=== PATIENT | female | born 1955 | race American Indian/Alaskan Native ===

== ENCOUNTER 2023-06-04 09:19 | Inpatient (IN) | payer MEDICARE, MEDICAID, SELFPAY ==
[2023-06-04 09:25] VITALS: BP 202/105; PULSE 74; RESP 16; TEMP 37.1; O2SAT 96; BMI 25.6
--- NOTE | 2023-06-04 09:34 | ECG_ITS ---
[facility] Test Date: 2023-06-04 Pat Name: Inna Taylor Department: Room: Gender: Female Core Inspector: : 1955 Requested By: Noemi Rodriguez Order Number: [id number] Jeremy MD: Akash Woo M.D. Measurements Intervals [place] Rate: 71 P: 34 CA: 132 QRS: 71 QRSD: 146 T: 40 QT: 439 QTc: 477 Interpretive Statements SINUS RHYTHM RIGHT BUNDLE BRANCH BLOCK [120+ ms QRS DURATION, UPRIGHT V1, 40+ ms S IN I/aVL/V4/V5/V6] Compared to ECG 10/03/2017 13:25:15 Right bundle-branch block now present Intraventricular conduction delay no longer present Electronically Signed On 06-04-2023 9:57:12 MATLAB DEVELOPER by Akash Woo M.D. [id number]
--- NOTE | 2023-06-04 09:35 | ED.C_ITS ---
HPI - Psych 2 General: Chief Complaint: Psychiatric Symptoms Stated Complaint: MHE Time Seen by Provider: 06/04/23 09:24 Source: patient Mode of arrival: ambulatory Limitations: no limitations History of Present Illness: 67-year-old female who states that over the last several weeks she has been having panic attacks along with severe depression. She states that she just feels anxious and has attacks at different times during the day she has had multiple episodes where she states she is just been crying she is also had thoughts of harming herself and has been scared she may harm herself she did bring her gun to her neighbor's house due to the concern. States she is seen her PCP has been on benzos and BuSpar states that nothing is helping and she wants to get inpatient help. Associated symptoms: Reports depression and suicidal ideation Review of Systems 2 Const: Denies: fever(s), chills, body aches or change in appetite Eyes: Denies: blurry vision or eye discomfort ENMT: Denies: throat pain or dental pain Card: Denies: chest pain Resp: Denies: dyspnea GI: Denies: abdominal pain, nausea, vomiting or diarrhea Musc: Denies: neck pain or back pain Skin/Breast: Denies: rash Neuro: Denies: headache(s) Psych: Reports: anxiety, depression and suicidal ideation Physical Exam 2 Const: COMMON NORMALS: patient oriented x3 and healthy appearing GENERAL APPEARANCE: anxious HENMT: COMMON NORMALS: normocephalic and atraumatic HEAD & SCALP: n ormocephalic and atraumatic Eye: COMMON NORMALS: Equal, round and reactive pupils present and EOMs intact bilaterally PUPIL: Yes Equal, round and reactive pupils present Neck/C-Spine: COMMON NORMALS: full ROM and supple Chest: COMMONS NORMALS: normal inspection of the chest and normal palpation of entire chest wall Resp: COMMON NORMALS: normal respiratory effort, No retractions, No use of accessory muscles and clear to auscultation bilaterally AUSCULTATION: clear to auscultation bilaterally Cardio: COMMON NORMALS: regular rate, regular rhythm and No murmurs present (Cardio) RATE: regular rate RHYTHM: regular rhythm Extremity: COMMON NORMALS: normal to inspection and full ROM Neuro: COMMON NORMALS: patient oriented x3, moves all extremities and no focal motor deficits Psych: COMMON NORMALS: Normal thought process present and cooperative MOOD & AFFECT: Yes anxious THOUGHT PROCESS: Normal thought process present T HOUGHT CONTENT: Yes Suicidality present Skin: COMMON NORMALS: no rashes or lesions noted and no wounds GENERAL SKIN EXAM: no rashes or lesions noted Course 2 Vital Signs: Vital signs: Vital Signs Temperature 98.8 F 06/04/23 09:25 Pulse Rate 74 06/04/23 09:25 Respiratory Rate 16 06/04/23 09:25 Blood Pressure 202/105 06/04/23 09:25 Pulse Oximetry 96 06/04/23 09:25 Oxygen Delivery Me thod Room Air 06/04/23 09:25 MDM - Psych Medical Decision Making Patient presents here with acute anxiety anxiety attacks and suicidal ideation she is voluntarily wanting admission patient is medically cleared she did have hypertension here she has not been taking her meds blood pressure here is improved after p.o. meds spoke to psychiatrist and will admit. Medical Records I reviewed the patient's medical records. Lab Data I reviewed the patient's lab results. 06/04/23 09:51 06/04/23 09:51 Laboratory Results WBC 5.40 10^3/uL (3.29-11.43) 06/04/23 09:51 RBC 4.78 10^6/uL (3.85-5.65) 06/04/23 09:51 Hgb 13.70 g/dL (11.27-16.99) 06/04/23 09:51 Hct 41.1 % (36-47) 06/04/23 09:51 MCV 86.0 fl (85-98) 06/04/23 09:51 MCH 28.7 pg (27-33) 06/04/23 09:51 MCHC 33.3 g/dL (30-55) 06/04/23 09:51 RDW 12.3 % (12.1-15.1) 06/04/23 09:51 Plt Count 239 10^3/cmm (157-399) 06/04/23 09:51 MPV 8.9 fL (7.4-10.4) 06/04/23 09:51 Neut % (Auto) 55.3 % 06/04/23 09:51 Lymph % (Auto) 35.6 % 06/04/23 09:51 Cook % (Auto) 7.8 % 06/04/23 09:51 Eos % (Auto) 0.0 % 06/04/23 09:51 Baso % (Auto) 0.7 % 06/04/23 09:51 Neut # (Auto) 2.99 10^3/uL (1.8-7.7) 06/04/23 09:51 Lymph # (Auto) 1.9 10^3/uL (0.8-4.8) 06/04/23 09:51 Cook # (Auto) 0.4 10^3/uL (0.2-0.9) 06/04/23 09:51 Eos # (Auto) 0.0 10^3/uL (0.0-0.8) 06/04/23 09:51 Baso # (Auto) 0.0 10^3/uL (0.0-0.1) 06/04/23 09:51 Nucleated RBC % (auto) 0 % 06/04/23 09:51 Nucleated RBCs # 0.0 /100WBC 06/04/23 09:51 Sodium 141 mmol/L (136-145) 06/04/23 09:51 Potassium 3.7 mmol/L (3.5-5.1) 06/04/23 09:51 Chloride 104 mmol/L (98-107) 06/04/23 09:51 Carbon Dioxide 24 mmol/L (22-29) 06/04/23 09:51 Anion Gap 16.7 (5-19) 06/04/23 09:51 BUN 12 mg/dL (8-23) 06/04/23 09:51 Creatinine 0.9 mg/dL (0.5-0.9) 06/04/23 09:51 GFR Calculation 62.8 mL/min (90-130) L 06/04/23 09:51 Glucose 123 mg/dL (65-115) H 06/04/23 09:51 POC Glucose 140 mg/dL (70-110) H 06/04/23 10:18 Calculated Osmolality 293 mOsm/kg (285-295) 06/04/23 09:51 Calcium 9.2 mg/dL (8.5-10.5) 06/04/23 09:51 Total Bilirubin 0.2 mg/dL (0.15-1.2) 06/04/23 09:51 AST 18 U/L (0-32) 06/04/23 09:51 ALT 18 U/L (0-33) 06/04/23 09:51 Alkaline Phosphatase 88 U/L (35-105) 06/04/23 09:51 Total Protein 7.5 g/dL (6.6-8.7) 06/04/23 09:51 Albumin 4.6 g/dL (3.5-5.2) 06/04/23 09:51 Globulin 2.9 g/dL (1.3-4.6) 12 09:51 TSH 3.50 uIU/mL (0.27-4.20) 06/04/23 09:51 Salicylates < 0.3 mg/dL (3-10) L 06/04/23 09:51 Urine Opiates Screen Negative ng/mL (Negative) 06/04/23 09:34 Acetaminophen < 5.0 ug/mL (10-30) L 06/04/23 09:51 Ur Barbiturates Screen Negative ng/mL (Negative) 06/04/23 09:34 Ur Phencyclidine Scrn Negative ng/mL (Negative) 06/04/23 09:34 Ur Amphetamines Screen Negative ng/mL (Negative) 06/04/23 09:34 U Benzodiazepines Scrn Negative ng/mL (Negative) 06/04/23 09:34 Urine Cocaine Screen Negative ng/mL (Negative) 06/04/23 09:34 U Marijuana (THC) Screen Negative ng/mL (Negative) 06/04/23 09:34 Ethyl Alcohol < 10 mg/dL (0-10) 06/04/23 09:51 No radiology studies performed this visit Discharge Plan Discharge Patient Disposition: Admitted As Inpatient Admit Provider: Cheikh Roberts Clinical Impression: Acute anxiety, Suicidal ideation Condition: Stable Coding Level of Care Code ED Pediatric Anesthesiologist for Jess Marie
[2023-06-04 10:00] LABS: Basophils % 0.7 %; Hematocrit 41.1 % (36-47); Lymphocytes # 1.9 10^3/uL (0.8-4.8); Lymphocytes % 35.6 %; Mean Corpuscular HGB Conc 33.3 g/dL (30-55); Mean Corpuscular Hemoglobin 28.7 pg (27-33); Mean Platelet Volume 8.9 fL (7.4-10.4); Monocytes # 0.4 10^3/uL (0.2-0.9); Monocytes % 7.8 %; Neutrophils # 2.99 10^3/uL (1.8-7.7); Neutrophils % 55.3 %; Nucleated Red Blood Cells % 0 %; Platelet Count 239 10^3/cmm (157-399); Red Blood Count 4.78 10^6/uL (3.85-5.65); Red Cell Distribution Width 12.3 % (12.1-15.1)
[2023-06-04] MEDS: metoprolol succinate ER (24 HR) 25 mg Tablet PO (10:01)
[2023-06-04] MEDS: LORazepam 1 mg Tablet PO (10:01)
[2023-06-04 10:23] LABS: Glucose Point of Care 140 mg/dL (70-110)
[2023-06-04 10:26] LABS: Amphetamines Screen Urine Negative (Negative); Barbiturates Screen Urine Negative (Negative); Benzodiazepines Screen Urine Negative (Negative); Cocaine Screen Urine Negative (Negative); Opiate Screen Urine Negative (Negative); PCP Screen Urine Negative (Negative); THC Screen Urine Negative (Negative)
[2023-06-04] MEDS: hyDRALAzine 25 mg Tablet PO (10:34)
[2023-06-04 10:35] LABS: Alanine Aminotransferase 18 U/L (0-33); Albumin Level 4.6 g/dL (3.5-5.2); Alkaline Phosphatase 88 U/L (35-105); Anion Gap 16.7 (5-19); Aspartate Amino Transferase 18 U/L (0-32); Blood Urea Nitrogen 12 mg/dL (8-23); Calcium 9.2 mg/dL (8.5-10.5); Carbon Dioxide 24 mmol/L (22-29); Chloride 104 mmol/L (98-107); Globulin 2.9 g/dL (1.3-4.6); Glomerular Filtration Rate 62.8 mL/min (90-130); Glucose 123 mg/dL (65-115); Osmolality Calculated 293 mOsm/kg (285-295); Potassium 3.7 mmol/L (3.5-5.1); Sodium 141 mmol/L (136-145); Total Bilirubin 0.2 mg/dL (0.15-1.2); Total Protein 7.5 g/dL (6.6-8.7)
[2023-06-04 10:36] LABS: Acetaminophen < 5.0 ug/mL (10-30); Alcohol Level < 10 mg/dL (0-10); Salicylate < 0.3 mg/dL (3-10)
[2023-06-04 11:09] VITALS: BP 171/83; PULSE 62; O2SAT 96
--- NOTE | 2023-06-04 11:21 | PC.PHAR ---
pt states she takes care of her own medications-pt states she is taking all the medications entered-pt states she has been out of her amlodipine 5mg daily for 2 weeks [facility] last filled 03/18/23 and states it has refills-[facility] states they have rxs on hold for losartan 50mg daily and crestor 20mg daily written on 03/25/23 never filled-pt states she has lantus solostar 5 units daily prn ext doesnt show when last filled pt states she doesnt remember where she filled the lantus at-pt brought in metformin 500mg 2 tabs bid dated 05/26/23 30d/s another bottle for 500mg daily dated 05/08/23 and metformin 1000mg bid dated 01/28/23-pt brought in a bottle of levothyroxine 150mcg daily dated 05/20/23 90d/s and another bottle dated 10/25/22 75mcg daily pt states she is taking the 150mcg-pt states she has 4 tabs left of her ambien 10mg rx bottle dated 03/05/23 30d/s [facility] states last filled 04/04/23 30d/s-pt states she is still taking prozac 20mg 20-40mg daily no label was on bottle but bottle has in 01/2023-pt states she takes protonix 40mg bid rx bottle dated 04-07-23 40mg daily-pt had brought in farmapram 1.0mg pt states takes prn-pt states she is taking lipitor 10mg qam rx bottle was dated 06/18/22-called npu and talked to teresa yeh to make her aware of the duplicate medications that the pt brought in and states she is taking-pt was seen 06/03/23 at [facility] by a sharepoint admin named adeline -notes are made in the pharmacy comments
[2023-06-04 11:41] VITALS: BP 161/83; PULSE 64; O2SAT 93
[2023-06-04 12:21] VITALS: BP 191/96; PULSE 59; RESP 14; TEMP 36.4; O2SAT 100
--- NOTE | 2023-06-04 13:02 | PC.NURSE ---
ADMISSION PT ARRIVES TO NPU FROM [facility] ED. PT STATES IT ALL STARTED 7 WEEKS AGO. PT HAS PANIC ATTACKS AND CRIES UNCONTROLLABLY. STATES SHE WILL CRY LIKE SHE HAS LOST A CHILD. PT WENT WAS RUNNING AWAY FROM HERSELF SHE DROVE OVER 1500 MILES AND BOUGHT ALL NEW CLOTHES FOR HERSELF. PT HAD A PLAN TO SHOOT HERSELF WITH A 9MM BUT REALIZED WHAT SHE WAS DOING AND TOOK THE GUN TO HER NEIGHBOR. PT ADDS THAT SHE ALSO SEES CHILDREN ON HER LAP AFTER THEY HAVE HAD THEIR HEADS CUT OFF AND CAN FEEL THE WEIGHT OF THEIR BODIES.
[2023-06-04] MEDS: pneumococcal (23 valent) SDV 0.5 mL IM (13:52)
[2023-06-04] MEDS: flu vacc pf 2023-24 (6 mos+) 60 MCG IM (13:54)
[2023-06-04 14:00] VITALS: BP 185/83; PULSE 53; RESP 15; TEMP 36.6; O2SAT 98
[2023-06-04] MEDS: OLANZapine 5 mg ODT PO (16:17)
[2023-06-04 20:33] LABS: Glucose Point of Care 111 mg/dL (70-110)
[2023-06-04 20:36] VITALS: BP 133/73; PULSE 53; RESP 15; TEMP 36.9; O2SAT 95
--- NOTE | 2023-06-04 21:06 | PC.NURSE ---
ANXIETY NOTED. PT DENIES SI/HI AND AVH AT THIS TIME. PT DOES MAKE ODD STATEMENTS SAYING, I CAN FEEL BABIES IN MY LEGS AND HEAR THEIR MOTHERS WAILING BEHIND ME, BUT 3 MONTHS AGO I DIDN'T CARE IF YOU WERE I WOULD WALK RIGHT OVER YOU. REPORTS 01/06 ANXIETY AND DEPRESSION 01/06. PT IS REQUESTING ANXIETY MEDICATIONS AND TYLENOL PM. PT WAS EDUCATED THAT THE HOSPITAL DOES NOT CARRY TYLENOL PM AND THEREFORE SHE COULD HAVE SOMETHING ELSE. RN REPORTED TO PT SHE ALREADY GETS AMBIEN 10 MG. PT STATED IT TAKES ALOT TO GET ME KNOCKED OUT AND I WANT EVERY THING I CAN GET. PT WAS INFORMED SHE COULD HAVE SOMETHING FOR ANXIETY BUT STILL HAS NOT COME TO THE NURSES STATION TO GET IT. PT IN ROOM READING WITH ANXIETY NOTED AT TIMES WHEN SPEAKING TO STAFF. ALL QUESTIONS ANSWERED AND SUPPORT VOICED. DENIES PAIN.
[2023-06-04] MEDS: BuSPIRONE 10 mg Tablet 5 MG PO (21:40)
[2023-06-04] MEDS: zolpidem 5 mg Tablet 10 MG PO (21:40)
[2023-06-04] MEDS: metformin 500 mg Tablet PO (21:40)
[2023-06-04] MEDS: hyDROXYzine 25 mg Capsule 50 MG PO (21:40)
--- NOTE | 2023-06-04 22:17 | PC.NURSE ---
PT UP TO NURSES STATION TO TAKE PM MEDS AT APPROXIMATELY 2149, REQUEST ANXIETY MEDS. VISTARIL 50 MG WAS GIVEN ORDERED FOR ANXIETY.
--- NOTE | 2023-06-05 04:00 | PC.NURSE ---
PT WAS GIVEN PRN ANXIETY LAST NIGHT AT APPROXIMATELY 2148. PT HAS RESTED WITH EYES CLOSED WITH NO DISTRESS NOTED FOR APPROXIMATELY 8 HOURS. PRN MEDICATION DEEMED EFFECTIVE.
[2023-06-05] MEDS: levothyroxine 150 mcg Tablet PO (05:46)
[2023-06-05 06:00] VITALS: BP 133/60; PULSE 44; RESP 15; O2SAT 95
--- NOTE | 2023-06-05 06:18 | P.NPUHP_ITS ---
Providers/Chief Complaint 2 Admitting Physician: Cheikh Roberts MD Primary Care Provider: RIANNA Mcwilliams Chief Complaint: MHE HPI NPU History of Present Illness Inna Taylor is a 67 year old female who presented to the emergency department with the following report: Chief Complaint: Psychiatric Symptoms Stated Complaint: MHE Time Seen by Provider: 06/04/23 09:24 Source: patient Mode of arrival: ambulatory Limitations: no limitations History of Present Illness: 67-year-old female who states that over the last several weeks she has been having panic attacks along with severe depression. She states that she just feels anxious and has attacks at different times during the day she has had multiple episodes where she states she is just been crying she is also had thoughts of harming herself and has been scared she may harm herself she did bring her gun to her neighbor's house due to the concern. States she is seen her PCP has been on benzos and BuSpar states that nothing is helping and she wants to get inpatient help. Associated symptoms: Reports depression and suicidal ideation The patient was admitted to the neuropsychiatric unit for definitive treatment of those issues. The patient presents today reporting that she is currently taking Sertraline, Buspar and Xanax and another medication, which were all started recently. She reports that she has been having ?meltdowns? and the medication has helped her stop crying, which she had been doing all the time. She reports that she has major panic attacks and feels like the whole world is caving in on her, stating it took 65 years for her to get this way, and she has never had this problem before. She reports that this is her first psychiatric hospitalization. She does report that she has been on Paxil, in the past, about five years ago, for ?women?s moods.? She denies outpatient services or other psychiatric medications previously. She denies cigarette, tobacco, alcohol, marijuana, cocaine, methamphetamine, or any other illicit drug use. She denies drug rehabilitation, DUI, or any other drug related charges. She reports that five years ago she was having irritability which is when she started the Paxil, which she took for a while but did not go back to the doctor after it ran out, at some point, and she quit taking it. The patient endorses low mood, tearfulness, feelings of hopelessness, helplessness, worthlessness, sleep difficulties, lack of enjoyment, overeating. She endorses passive wish and a few days of suicidal thoughts. She denies self-injurious behavior. She reports that she had a gun and took it to someone else?s house for safety. She endorses anxiety with worrying and physical symptoms, like shaking and shortness of breath. She endorses panic attacks, describing that feels like a tornado outside sucking everything out of her. She reports that she has times where she cries for no reason. She denies flashbacks or nightmares. She denies paranoia. She endorses visual hallucinations that she describes as very vivid. She denies obsessive compulsive symptoms. She endorses that she has been through menopause. We discussed the risks, benefits, and alternatives of increasing the Zoloft and possibly starting a mood stabilizer, and she understood and agreed to proceed as is documented in this note. PSYCHIATRIC HISTORY: As above. SUBSTANCE ABUSE HISTORY: As above.? FAMILY HISTORY: The patient endorses mental health issues on her mother?s side of the family. She denies addiction issues or suicide attempts or completions on either side of the family. DEVELOPMENTAL HISTORY: The patient denies any issues with her mother?s or delivery of her, but she was a twin. The patient reports learning to walk and talk and meeting developmental milestones on time. The patient denies speech therapy, learning support, emotional support, or special education classes. PSYCHOSOCIAL HISTORY: The patient reports that her mother and father were together at her and remain together. The patient reports that there are four girls from that union. Her and her twin are the oldest. She describes her childhood as good. She denies emotional, physical, or sexual abuse. She reports trauma from her twin sister running off with her . They were together for five months and he left her as well. She denies nightmares related to this but is is very upsetting. The patient reports that she graduated from high school and went to college and got a degree in business law and business. She endorses being heterosexual, with the longest relationship being twenty years. She has been twice and twice. She reports that she has three daughters. She denies service. She denies a hinduism belief system. 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 She reports that she currently lives in a house with her 18-year-old granddaughter. ? LEGAL HISTORY: Denied. MEDICAL HISTORY: The patient endorses allergy to Penicillin and something else she could not remember the name of. The patient endorses that she had lung cancer and breast cancer. She endorses thyroid, colon, gall bladder, right rotator cuff surgery. She reports that she started her menses at 13 years old. She has been out of menopause for five years. She reports that she had vaginal deliveries. Meds NPU Home Medications Medication Instructions Recorded Confirmed Last Taken Type Farmapram (1.0mg) 1 mg PO DAILY PRN Anxiety 06/04/23 06/04/23 Unknown History amlodipine 5 mg tablet 5 mg PO DAILY 06/04/23 06/04/23 2 Weeks Ago History ~05/21/23 see all pharmacy com atorvastatin 10 mg tablet (Lipitor) 10 mg PO QAM 06/04/23 06/04/23 Unknown History buspirone 5 mg tablet 5 mg PO TID 06/04/23 06/04/23 Unknown History diphenhydramine 25 2 - 3 tab PO BEDTIME 06/04/23 06/04/23 Unknown History mg-acetaminophen 500 mg tablet (Pain Relief PM) diphenhydramine HCl 50 mg capsule 50 - 100 mg PO BEDTIME 06/04/23 06/04/23 Unknown History (Sleep Aid (diphenhydramine)) fluoxetine 20 mg capsule (Prozac) 20 - 40 mg PO DAILY 06/04/23 06/04/23 Unknown History hydroxyzine pamoate 50 mg capsule 50 mg PO Q6H PRN Anxiety 06/04/23 06/04/23 Unknown History ibuprofen 600 mg tablet 600 mg PO Q6H PRN Pain 06/04/23 06/04/23 Unknown History insulin glargine 100 unit/mL (3 5 unit SUBCUT DAILY PRN blood sugar 06/04/23 06/04/23 Unknown History mL) subcutaneous pen (Lantus Solostar U-100 Insulin) levothyroxine 150 mcg tablet 150 mcg PO QAM 06/04/23 06/04/23 Unknown History melatonin 12 mg tablet 48 - 60 mg PO BEDTIME 06/04/23 06/04/23 Unknown History metformin 500 mg tablet 1,000 mg PO BID 06/04/23 06/04/23 Unknown History omeprazole magnesium 20 mg 20 mg PO DAILY PRN Heartburn 06/04/23 06/04/23 Unknown History tablet,delayed release (Prilosec OTC) pantoprazole 40 mg tablet,delayed 40 mg PO BID 06/04/23 06/04/23 Unknown History release (Protonix) sertraline 50 mg tablet (Zoloft) 50 mg PO DAILY 06/04/23 06/04/23 Unknown History zolpidem 10 mg tablet (Ambien) 10 mg PO BEDTIME 06/04/23 06/04/23 Unknown History Allergies Allergy/AdvReac Type Severity Reaction Status Date / Time Penicillins Allergy Mild ALGY-Hives Verified 06/04/23 09:56 lisinopril Allergy Unknown Verified 06/04/23 11:17 Mental Status Exam 2 MSE Comments: This is a well-nourished, well-developed, white female, in hospital scrubs, with limited grooming and eye contact. No abnormal movements, except for mild psychomotor retardation. Cooperative with exam in mild distress. Speech was normal rate and volume. Mood described as better, but all I do is sleep; affect congruent. Thought process, organized. Thought content: patient denied any suicidal or homicidal ideation, there were no delusions reported or noted, patient denied any auditory or visual hallucinations. Attention, concentration, and memory appeared intact, but none were formally tested. Alert and oriented times three. Insight and judgment appear limited. Impulse control is limited. Vitals/I&O/Wt Last Vital Signs Temp 98.4 F 06/04/23 20:36 Pulse 53 L 06/04/23 20:36 Resp 15 06/04/23 20:36 BP 133/73 06/04/23 20:36 Pulse Ox 95 06/04/23 20:36 O2 Del Method Room Air 06/04/23 20:36 Weight last 48 hrs Weight 69.853 kg Data NPU 06/04/23 09:51 06/04/23 09:51 A&P Assessment and plan (1) Suicidal ideation: (2) Acute anxiety: (3) Major depressive disorder: Plan This is a 67-year-old white female with no reported history of significant mental health issues or treatment who presents reporting significant depression and anxiety with recent medication trials open to medication changes. 1.? Continue current medication: 2.? Increase Zoloft. 3.? Consider starting mood stabilizer. ? 4.? Encourage individual, group, and milieu therapy. 5.? Continue q-15-minute checks for safety. Involuntary Hold Information 2 96 Hour Hold: 96 Hour Involuntary Admission: No Attestations NPU 2 Medical Necessity Statement*: Inpatient hospitalization is medically necessary and the clinically appropriate intervention, at this time. We will monitor medications and make changes as indicated. Patient will be in the hospital for over two midnights. Likely length of stay is three to five days. Coding Level of Care Code Acute Code for Chg Fwd Diagnoses Suicidal ideation R45.851 Acute anxiety F41.9 Major depressive disorder F32.9
[2023-06-05 07:40] VITALS: BP 176/79
[2023-06-05] MEDS: losartan 50 mg Tablet 100 MG PO (07:40)
[2023-06-05] MEDS: BuSPIRONE 10 mg Tablet 5 MG PO ×3 (07:43→21:03)
[2023-06-05] MEDS: pantoprazole DR 40 mg Tablet PO ×2 (07:44→17:11)
[2023-06-05] MEDS: amlodipine 5 mg Tablet PO (07:45)
[2023-06-05] MEDS: fluoxetine 20 mg Capsule PO (07:45)
[2023-06-05] MEDS: metformin 500 mg Tablet PO ×4 (07:45→21:03)
[2023-06-05] MEDS: sertraline 50 mg Tablet PO (07:45)
[2023-06-05] MEDS: atorvastatin 40 mg Tablet 20 MG PO (07:45)
[2023-06-05] MEDS: OLANZapine 5 mg ODT PO (07:45)
[2023-06-05 08:19] LABS: Glucose Point of Care 142 mg/dL (70-110)
[2023-06-05 12:05] LABS: Glucose Point of Care 142 mg/dL (70-110)
[2023-06-05 14:00] VITALS: BP 171/79; PULSE 46; RESP 18; TEMP 36.5; O2SAT 98
[2023-06-05 17:04] LABS: Glucose Point of Care 89 mg/dL (70-110)
[2023-06-05 19:55] LABS: Glucose Point of Care 127 mg/dL (70-110)
[2023-06-05 20:23] VITALS: BP 178/73; PULSE 51; RESP 16; TEMP 36.8; O2SAT 98
--- NOTE | 2023-06-05 20:50 | PC.NURSE ---
IN BED READING BOOK. PT REPORTS SHE HAD A GOOD DAY STATING I'VE ONLY HAD 4 PANIC ATTACKS TODAY AND I USUALLY HAVE TEN, SO WHATEVER YOU ALL ARE DOING, KEEP IT UP. PT DENIES PAIN. DENIES SI/HI AND AVH AT THIS TIME. REPORTS ANXIETY 10 AND DEPRESSION 4/. PT REQUESTS PRN ANXIETY MEDICATIONS. PT ASSURED THIS RN WOULD GIVE HER VISTARIL 50 MG PT AGREED. ALL QUESTIONS ANSWERED AND SUPPORT VOICED.
[2023-06-05] MEDS: zolpidem 5 mg Tablet 10 MG PO (21:03)
[2023-06-05] MEDS: hyDROXYzine 25 mg Capsule 50 MG PO (21:03)
[2023-06-06] MEDS: levothyroxine 150 mcg Tablet PO (05:56)
[2023-06-06] MEDS: atorvastatin 40 mg Tablet 20 MG PO (05:56)
[2023-06-06 06:00] VITALS: BP 135/74; PULSE 55; RESP 17; O2SAT 96
--- NOTE | 2023-06-06 06:27 | PC.NURSE ---
PT HAS RESTED WELL THROUGH OUT THE NIGHT SLEEPING APPROXIMATELY 8 HOURS TOTAL. PT WAS GIVEN VISTARIL 50 MG PRN AND IT IS DEEMED EFFECTIVE.
[2023-06-06 07:45] VITALS: BP 146/81
[2023-06-06] MEDS: losartan 50 mg Tablet 100 MG PO (07:45)
[2023-06-06] MEDS: pantoprazole DR 40 mg Tablet PO ×2 (07:47→17:04)
[2023-06-06] MEDS: fluoxetine 20 mg Capsule PO (07:47)
[2023-06-06] MEDS: BuSPIRONE 10 mg Tablet 5 MG PO ×3 (07:47→20:52)
[2023-06-06 07:48] LABS: Glucose Point of Care 114 mg/dL (70-110)
[2023-06-06] MEDS: metformin 500 mg Tablet PO ×4 (07:48→20:52)
[2023-06-06] MEDS: amlodipine 5 mg Tablet PO (07:48)
[2023-06-06] MEDS: sertraline 50 mg Tablet PO ×2 (07:48→11:08)
--- NOTE | 2023-06-06 10:11 | P.NPUPN_ITS ---
Subjective NPU 2 Subjective: Patient presented today reporting that she is doing a little better with the increase in the Zoloft. She reports that she is feeling a little bit more positive. We discussed her working with the social work team on making sure she has appropriate follow-up and aftercare. She denies any side effects of the medication and we discussed continuing to move towards the Zoloft unlikely away from the Prozac. Mental Status Exam 2 MSE Comments: This is a well-nourished, well-developed, white female, in hospital scrubs, with limited grooming and eye contact. No abnormal movements, except for mild psychomotor retardation. Cooperative with exam in mild distress. Speech was normal rate and volume. Mood described as better; affect congruent. Thought process, organized. Thought content: patient denied any suicidal or homicidal ideation, there were no delusions reported or noted, patient denied any auditory or visual hallucinations. Attention, concentration, and memory appeared intact, but none were formally tested. Alert and oriented times three. Insight and judgment appear limited. Impulse control is limited. Vitals/I&O/Wt Last Vital Signs Temp 98.3 F 06/05/23 20:23 Pulse 55 L 06/06/23 06:00 Resp 17 06/06/23 06:00 BP 146/81 06/06/23 07:45 Pulse Ox 96 06/06/23 06:00 O2 Del Method Room Air 06/06/23 06:00 Data NPU 06/04/23 09:51 06/04/23 09:51 A&P Assessment and plan (1) Suicidal ideation: (2) Acute anxiety: (3) Major depressive disorder: Plan This is a 67-year-old white female with no reported history of significant mental health issues or treatment who presents reporting significant depression and anxiety with recent medication trials open to medication changes. 1.? Continue current medication: 2.? Increased Zoloft to 100mg. 3.? Consider starting mood stabilizer. ? 4.? Encourage individual, group, and milieu therapy. 5.? Continue q-15-minute checks for safety. Involuntary Hold Information 2 96 Hour Hold: 96 Hour Involuntary Admission: No Attestations NPU 2 Medical Necessity Statement*: Inpatient hospitalization is medically necessary and the clinically appropriate intervention, at this time. We will monitor medications and make changes as indicated. Likely length of stay is three to five days. Coding Level of Care Code Acute Code for Chg Fwd Diagnoses Suicidal ideation R45.851 Acute anxiety F41.9 Major depressive disorder F32.9
[2023-06-06 11:53] LABS: Glucose Point of Care 115 mg/dL (70-110)
[2023-06-06 14:00] VITALS: BP 164/65; PULSE 66; RESP 16; TEMP 36.9; O2SAT 97
[2023-06-06 20:40] LABS: Glucose Point of Care 123 mg/dL (70-110)
[2023-06-06] MEDS: zolpidem 5 mg Tablet 10 MG PO (20:52)
[2023-06-06 21:03] VITALS: BP 137/79; PULSE 62; RESP 18; TEMP 36.7; O2SAT 96
[2023-06-07 06:00] VITALS: BP 141/59; PULSE 58; RESP 16; O2SAT 94
[2023-06-07] MEDS: levothyroxine 150 mcg Tablet PO (06:25)
[2023-06-07] MEDS: atorvastatin 40 mg Tablet 20 MG PO (06:25)
[2023-06-07 07:48] LABS: Glucose Point of Care 154 mg/dL (70-110)
--- NOTE | 2023-06-07 08:12 | P.NPUPN_ITS ---
Subjective NPU 2 Subjective: Patient presented today reporting that she is feeling better and more optimistic about discharge. We discussed going to make sure she had appropriate follow-up given she has not had mental health involved. She reports that she has no side effects and is tolerating the medication quite well. We discussed the likelihood of discharge in the next 48 hours. Mental Status Exam 2 MSE Comments: This is a well-nourished, well-developed, white female, in hospital scrubs, with appropriate grooming and eye contact. No abnormal movements. Cooperative with exam in no acute distress. Speech was normal rate and volume. Mood described as much better; affect congruent. Thought process, organized. Thought content: patient denied any suicidal or homicidal ideation, there were no delusions reported or noted, patient denied any auditory or visual hallucinations. Attention, concentration, and memory appeared intact, but none were formally tested. Alert and oriented times three. Insight and judgment appear limited, but improving. Impulse control is limited. Vitals/I&O/Wt Last Vital Signs Temp 98.1 F 06/06/23 21:03 Pulse 58 L 06/07/23 06:00 Resp 16 06/07/23 06:00 BP 141/59 06/07/23 06:00 Pulse Ox 94 06/07/23 06:00 O2 Del Method Room Air 06/07/23 06:00 Data NPU 06/04/23 09:51 06/04/23 09:51 A&P Assessment and plan (1) Suicidal ideation: (2) Acute anxiety: (3) Major depressive disorder: Plan This is a 67-year-old white female with no reported history of significant mental health issues or treatment who presents reporting significant depression and anxiety with recent medication trials open to medication changes. 1.? Continue current medication: 2.? Increased Zoloft to 100mg. 3.? Consider starting mood stabilizer. ? 4.? Encourage individual, group, and milieu therapy. 5.? Continue q-15-minute checks for safety. Involuntary Hold Information 2 96 Hour Hold: 96 Hour Involuntary Admission: No Attestations NPU 2 Medical Necessity Statement*: Inpatient hospitalization is medically necessary and the clinically appropriate intervention, at this time. We will monitor medications and make changes as indicated. Likely length of stay is 1-3 days. Coding Level of Care Code Acute Code for Chg Fwd Diagnoses Suicidal ideation R45.851 Acute anxiety F41.9 Major depressive disorder F32.9
[2023-06-07 09:39] VITALS: BP 141/59
[2023-06-07] MEDS: losartan 50 mg Tablet 100 MG PO (09:39)
[2023-06-07] MEDS: sertraline 50 mg Tablet 100 MG PO (09:39)
[2023-06-07] MEDS: metformin 500 mg Tablet PO ×4 (09:39→21:00)
[2023-06-07] MEDS: pantoprazole DR 40 mg Tablet PO ×2 (09:39→17:49)
[2023-06-07] MEDS: fluoxetine 20 mg Capsule PO (09:40)
[2023-06-07] MEDS: BuSPIRONE 10 mg Tablet 5 MG PO ×3 (09:40→21:00)
[2023-06-07] MEDS: amlodipine 5 mg Tablet PO (09:40)
[2023-06-07 11:50] LABS: Glucose Point of Care 113 mg/dL (70-110)
[2023-06-07 14:00] VITALS: BP 153/74; PULSE 73; RESP 20; TEMP 36.4; O2SAT 97
[2023-06-07 17:57] LABS: Glucose Point of Care 109 mg/dL (70-110)
[2023-06-07 20:31] LABS: Glucose Point of Care 123 mg/dL (70-110)
[2023-06-07] MEDS: zolpidem 5 mg Tablet 10 MG PO (21:00)
[2023-06-07 22:00] VITALS: BP 111/70; PULSE 73; RESP 18; TEMP 36.6; O2SAT 97
[2023-06-08 06:00] VITALS: BP 157/89; PULSE 76; RESP 17; O2SAT 98
[2023-06-08] MEDS: levothyroxine 150 mcg Tablet PO (06:11)
[2023-06-08] MEDS: atorvastatin 40 mg Tablet 20 MG PO (06:11)
[2023-06-08 08:14] LABS: Glucose Point of Care 111 mg/dL (70-110)
[2023-06-08] MEDS: pantoprazole DR 40 mg Tablet PO (08:44)
[2023-06-08] MEDS: losartan 50 mg Tablet 100 MG PO (08:44)
[2023-06-08] MEDS: fluoxetine 20 mg Capsule PO (08:44)
[2023-06-08] MEDS: metformin 500 mg Tablet PO ×2 (08:44→12:13)
[2023-06-08] MEDS: amlodipine 5 mg Tablet PO (08:44)
[2023-06-08] MEDS: sertraline 50 mg Tablet 100 MG PO (08:44)
[2023-06-08] MEDS: BuSPIRONE 10 mg Tablet 5 MG PO (08:44)
--- NOTE | 2023-06-08 12:36 | P.NPUDS_ITS ---
Diagnoses at Discharge Discharge Diagnosis (1) Suicidal ideation: Status: Resolved (2) Acute anxiety: Status: Acute (3) Major depressive disorder: Status: Acute Reason for Visit Reason for Visit: MHE Brief History: History of Present Illness Inna Taylor is a 67 year old female who presented to the emergency department with the following report: Chief Complaint: Psychiatric Symptoms Stated Complaint: MHE Time Seen by Provider: 06/04/23 09:24 Source: patient Mode of arrival: ambulatory Limitations: no limitations History of Present Illness: 67-year-old female who states that over the last several weeks she has been having panic attacks along with severe depression. She states that she just feels anxious and has attacks at different times during the day she has had multiple episodes where she states she is just been crying she is also had thoughts of harming herself and has been scared she may harm herself she did bring her gun to her neighbor's house due to the concern. States she is seen her PCP has been on benzos and BuSpar states that nothing is helping and she wan ts to get inpatient help. Associated symptoms: Reports depression and suicidal ideation The patient was admitted to the neuropsychiatric unit for definitive treatment of those issues. The patient presents today reporting that she is currently taking Sertraline, Buspar and Xanax and another medication, which were all started recently. She reports that she has been having ?meltdowns? and the medication has helped her stop crying, which she had been doing all the time. She reports that she has major panic attacks and feels like the whole world is caving in on her, stating it took 65 years for her to get this way, and she has never had this problem before. She reports that this is her first psychiatric hospitalization. She does report that she has been on Paxil, in the past, about five years ago, for ?women?s moods.? She denies outpatient services or other psychiatric medications previously. She denies cigarette, tobacco, alcohol, marijuana, cocaine, methamphetamine, or any other illicit drug use. She denies drug rehabilitation, DUI, or any other drug related charges. She reports that five years ago she was having irritability which is when she started the Paxil, which she took for a while but did not go back to the doctor after it ran out, at some point, and she quit taking it. The patient endorses low mood, tearfulness, feelings of hopelessness, helplessness, worthlessness, sleep difficulties, lack of enjoyment, overeating. She endorses passive wish and a few days of suicidal thoughts. She denies self-injurious behavior. She reports that she had a gun and took it to someone else?s house for safety. She endorses anxiety with worrying and physical symptoms, like shaking and shortness of breath. She endorses panic attacks, describing that feels like a tornado outside sucking everything out of her. She reports that she has times where she cries for no reason. She denies flashbacks or nightmares. She denies paranoia. She endorses visual hallucinations that she describes as very vivid. She denies obsessive compulsive symptoms. She endorses that she has been through menopause. We discussed the risks, benefits, and alternatives of increasing the Zoloft and possibly starting a mood stabilizer, and she understood and agreed to proceed as is documented in this note. PSYCHIATRIC HISTORY: As above. SUBSTANCE ABUSE HISTORY: As above.? FAMILY HISTORY: The patient endorses mental health issues on her mother?s side of the family. She denies addiction issues or suicide attempts or completions on either side of the family. DEVELOPMENTAL HISTORY: The patient denies any issues with her mother?s or delivery of her, but she was a twin. The patient reports learning to walk and talk and meeting developmental milestones on time. The patient denies speech therapy, learning support, emotional support, or special education classes. PSYCHOSOCIAL HISTORY: The patient reports that her mother and father were together at her and remain together. The patient reports that there are four girls from that union. Her and her twin are the oldest. She describes her childhood as good. She denies emotional, physical, or sexual abuse. She reports trauma from her twin sister running off with her . They were together for five months and he left her as well. She denies nightmares related to this but is is very upsetting. The patient reports that she graduated from high school and went to college and got a degree in business law and business. She endorses being heterosexual, with the longest relationship being twenty years. She has been twice and twice. She reports that she has three daughters. She denies service. She denies a mandaeism belief system. 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 She reports that she currently lives in a house with her 18-year-old granddaughter. ? LEGAL HISTORY: Denied. MEDICAL HISTORY: The patient endorses allergy to Penicillin and something else she could not remember the name of. The patient endorses that she had lung cancer and breast cancer. She endorses thyroid, colon, gall bladder, right rotator cuff surgery. She reports that she started her menses at 13 years old. She has been out of menopause for five years. She reports that she had vaginal deliveries. Hospital Course Hospital Course She acclimated to the individual, group and milieu therapies provided. She presented reporting that her medication was not fully effective that she felt like she was going to have a breakdown. Her home medications were continued and her Zoloft was increased from 50 to 100 mg p.o. daily. She did well with these changes. She worked with the social work team to ensure appropriate aftercare appointments. She had significant improvement during her stay and was able to contract for safety outside hospital prior to discharge. During the hospitalization, patient had routine laboratory studies which were within normal limits except for few outliers. Additionally there was a general medical evaluation which was also within normal limits and revealed no new acute processes. Discharge Summary: At the time of discharge, she denied psychosis or lethality. Mood and anxiety were well managed. Patient endorsed a plan to follow-up with the aftercare recommendations of the treatment team. Patient was evaluated and deemed to be absent credible lethality, and had achieved the maximum benefit from an inpatient hospitalization, so was discharged. Involuntary Hold Information 96 Hour Hold: 96 Hour Involuntary Admission: No Mental Status Exam MSE Comments: This is a well-nourished, well-developed, white female, in hospital scrubs, with appropriate grooming and eye contact. No abnormal movements. Cooperative with exam in no acute distress. Speech was normal rate and volume. Mood described as much better; affect congruent. Thought process, organized. Thought content: patient denied any suicidal or homicidal ideation, there were no delusions reported or noted, patient denied any auditory or visual hallucinations. Attention, concentration, and memory appeared intact, but none were formally tested. Alert and oriented times three. Insight and judgment appear limited, but improving. Impulse control is limited. Discharge Data Studies Completed and Pending: Laboratory Results WBC 5.40 10^3/uL (3.2 9-11.43) 06/04/23 09:51 RBC 4.78 10^6/uL (3.8 5-5.65) 06/04/23 09:51 Hgb 13.70 g/dL (11.27 -16.99) 06/04/23 09:51 Hct 41.1 % (36-47) 06/04/23 09:51 MCV 86.0 fl (85-98) 06/04/23 09:51 MCH 28.7 pg (27-33) 06/04/23 09:51 MCHC 33.3 g/dL (30-55) 06/04/23 09:51 RDW 12.3 % (12.1-15.1 ) 06/04/23 09:51 Plt Count 239 10^3/cmm (157 -399) 06/04/23 09:51 MPV 8.9 fL (7.4-10.4) 06/04/23 09:51 Neut % (Auto) 55.3 % 06/04/23 09:51 Lymph % (Auto) 35.6 % 06/04/23 09:51 [place] % (Auto) 7.8 % 06/04/23 09:51 Eos % (Auto) 0.0 % 06/04/23 09:51 Baso % (Auto) 0.7 % 06/04/23 09:51 Neut # (Auto) 2.99 10^3/uL (1.8 -7.7) 06/04/23 09:51 Lymph # (Auto) 1.9 10^3/uL (0.8- 4.8) 06/04/23 09:51 [place] # (Auto) 0.4 10^3/uL (0.2- 0.9) 06/04/23 09:51 Eos # (Auto) 0.0 10^3/uL (0.0- 0.8) 06/04/23 09:51 Baso # (Auto) 0.0 10^3/uL (0.0- 0.1) 06/04/23 09:51 Nucleated RBC % (a uto) 0 % 06/04/23 09:51 Nucleated RBCs # 0.0 /100WBC 06/04/23 09:51 Sodium 141 mmol/L (136-1 45) 06/04/23 09:51 Potassium 3.7 mmol/L (3.5-5 .1) 06/04/23 09:51 Chloride 104 mmol/L (98-10 7) 06/04/23 09:51 Carbon Dioxide 24 mmol/L (22-29) 06/04/23 09:51 Anion Gap 16.7 (5-19) 06/04/23 09:51 BUN 12 mg/dL (8-23) 06/04/23 09:51 Creatinine 0.9 mg/dL (0.5-0. 9) 12 09:51 GFR Calculation 62.8 mL/min (90-1 30) L 06/04/23 09:51 Glucose 123 mg/dL (65-115 ) H 06/04/23 09:51 POC Glucose 111 mg/dL (70-110 ) H 06/08/23 08:11 Calculated Osmolal ity 293 mOsm/kg (285- 295) 06/04/23 09:51 Calcium 9.2 mg/dL (8.5-10 .5) 06/04/23 09:51 Total Bilirubin 0.2 mg/dL (0.15-1 .2) 06/04/23 09:51 AST 18 U/L (0-32) 06/04/23 09:51 ALT 18 U/L (0-33) 06/04/23 09:51 Alkaline Phosphata se 88 U/L (35-105) 06/04/23 09:51 Total Protein 7.5 g/dL (6.6-8.7 ) 06/04/23 09:51 Albumin 4.6 g/dL (3.5-5.2 ) 06/04/23 09:51 Globulin 2.9 g/dL (1.3-4.6 ) 06/04/23 09:51 TSH 3.50 uIU/mL (0.27 -4.20) 06/04/23 09:51 Salicylates < 0.3 mg/dL (3-10 ) L 06/04/23 09:51 Urine Opiates Scre en Negative ng/mL (N egative) 06/04/23 09:34 Acetaminophen < 5.0 ug/mL (10-3 0) L 06/04/23 09:51 Ur Barbiturates Sc reen Negative ng/mL (N egative) 06/04/23 09:34 Ur Phencyclidine S crn Negative ng/mL (N egative) 06/04/23 09:34 Ur Amphetamines Sc reen Negative ng/mL (N egative) 06/04/23 09:34 U Benzodiazepines Scrn Negative ng/mL (N egative) 06/04/23 09:34 Urine Cocaine Scre en Negative ng/mL (N egative) 06/04/23 09:34 U Marijuana (THC) Screen Negative ng/mL (N egative) 06/04/23 09:34 Ethyl Alcohol < 10 mg/dL (0-10) 06/04/23 09:51 Vitals: Last Vital Signs Temp 97.8 F 06/07/23 22:00 Pulse 76 06/08/23 06:00 Resp 17 06/08/23 06:00 BP 157/89 06/08/23 06:00 Pulse Ox 98 06/08/23 06:00 O2 Del Method Room Air 06/08/23 06:00 Discharge Plan Discharge Patient Disposition: Home Condition: Stable Prescriptions: New atorvastatin 40 mg Tablet 20 mg PO QAM 30 Days Qty: 15 1RF fluoxetine 20 mg Capsule 20 mg PO DAILY 30 Days Qty: 30 1RF sertraline 50 mg Tablet 100 mg PO DAILY 30 Days Qty: 60 1RF losartan 50 mg Tablet 100 mg PO DAILY 30 Days Qty: 60 1RF Continued Farmapram (1.0mg) 1 mg PO DAILY PRN (Reason: Anxiety) buspirone 5 mg Tablet 5 mg PO TID metformin 500 mg tablet 1,000 mg PO BID Sleep Aid (diphenhydramine) 50 mg Capsule 50 - 100 mg PO BEDTIME hydroxyzine pamoate 50 mg capsule 50 mg PO Q6H PRN (Reason: Anxiety) amlodipine 5 mg Tablet 5 mg PO DAILY Protonix 40 mg Tablet,Delayed Release (Dr/Ec) 40 mg PO BID levothyroxine 150 mcg Tablet 150 mcg PO QAM ibuprofen 600 mg Tablet 600 mg PO Q6H PRN (Reason: Pain) Ambien 10 mg Tablet 10 mg PO BEDTIME Pain Relief PM 25-500 mg Tablet 2 - 3 tab PO BEDTIME Prilosec OTC 20 mg Tablet,Delayed Release (Dr/Ec) 20 mg PO DAILY PRN (Reason: Heartburn) Lantus Solostar U-100 Insulin 100 unit/mL (3 mL) Insulin Pen 5 unit SUBCUT DAILY PRN (Reason: blood sugar) No Action Lipitor 10 mg Tablet 10 mg PO QAM Prozac 20 mg Capsule 20 - 40 mg PO DAILY Zoloft 50 mg Tablet 50 mg PO DAILY melatonin 12 mg Tablet 48 - 60 mg PO BEDTIME Discharge Orders: Discharge Order (Routine); Ordered 06/08/23 Ordered By: Cheikh Roberts Referrals: Antonieta Mccracken FNP [Primary Care Provider] - Discharge Diet: Regular Discharge Activity: Resume usual activity Patient Instructions: Fluoxetine (By mouth), Sertraline (By mouth), Depression (DC), Opioid Safety Discharge Attestations NPU Time Spent in Discharge Care*: less than 30 min Specific Discharge Activities: Specific discharge activities: educating patient, discussing with assistant case manager/social workers/dc planners, documenting/other paperwork and evaluating patient/reviewing data Coding Level of Care Code Acute Code for Chg Fwd Diagnoses Suicidal ideation R45.851 Acute anxiety F41.9 Major depressive disorder F32.9
[2023-06-08 12:48] VITALS: BP 157/89; PULSE 76; RESP 17; O2SAT 98
== END 2023-06-08 13:14 | disposition home or self-care (01) | DRG 880 ==
LOC: ER 09:55 → NP 10:32
PROVIDERS: Admitting Provider Psychiatry & Neurology Psychiatry; Emergency Provider Emergency Medicine; PCP Nurse Practitioner Family; Visit Provider Psychiatry & Neurology Psychiatry
DX: F41.9 Anxiety disorder, unspecified (principal); R45.851 Suicidal ideations; F32.9 Major depressive disorder, single episode, unspecified; Z81.8 Family history of other mental and behavioral disorders; Z85.3 Personal history of malignant neoplasm of breast; Z85.118 Personal history of other malignant neoplasm of bronchus and lung
CPT/HCPCS: 36416; 80053; 80306; 80307; 82962; 84443; 85025; 90471; 90686; 90732; 93005; 97150; 97165; 99285

== ENCOUNTER 2024-02-04 09:29 | Outpatient (CLI) | payer MEDICARE, MEDICAID, SELFPAY ==
--- NOTE | 2024-02-04 10:00 | MM_ITS ---
WS: [id number] BILATERAL SCREENING DIGITAL TOMOSYNTHESIS MAMMOGRAM WITH CAD HISTORY: SCREENING COMPARISON: 07/23/2021, 11/21/2016 Bilateral CC and MLO views with tomosynthesis and synthetic mammography submitted. Computer aided det ection analyzed. Breast composition: There are scattered areas of fibroglandular density. No suspicious masses, microc alcifications or architectural distortion. Stable asymmetries and a few scattered calcifications. No suspicious mass or interval change. MM/[place] [id number] IMPRESSION: BI-RADS: 2-Benign FOLLOW UP: 1 Year Follow-up
== END 2024-02-04 09:30 | disposition home or self-care (01) ==
LOC: MOBLMAM 09:40
PROVIDERS: PCP Nurse Practitioner Family; Visit Provider Nurse Practitioner Family
DX: Z12.31 Encounter for screening mammogram for malignant neoplasm of breast (principal); R92.323 Mammographic fibroglandular density, bilateral breasts; N64.89 Other specified disorders of breast; R92.1 Mammographic calcification found on diagnostic imaging of breast
CPT/HCPCS: 77063; 77067

== ENCOUNTER 2025-02-16 14:45 | Outpatient (CLI) | payer MEDICARE, MEDICAID, SELFPAY ==
--- NOTE | 2025-02-16 15:00 | MM_ITS ---
WS: [id number] BILATERAL SCREENING DIGITAL TOMOSYNTHESIS MAMMOGRAM WITH CAD HISTORY: SCREENING COMPARISON: 02/04/2024, 11/21/2016 Bilateral CC and MLO views with tomosynthesis and synthetic mammography submitted. Computer aided detection analyzed. Breast composition: There are scattered areas of fibroglandular density. No suspicious masses, microcalcifications or architectural distortion. Benign calcifications in each breast. MM/MM scr BI tomosynthesis [id number] IMPRESSION: BI-RADS: 2 - Benign. FOLLOW UP: 1 Year Follow-up
== END 2025-02-16 14:46 | disposition home or self-care (01) ==
LOC: MOBLMAM 14:53
PROVIDERS: PCP Nurse Practitioner; Visit Provider Nurse Practitioner
DX: Z12.31 Encounter for screening mammogram for malignant neoplasm of breast (principal); R92.323 Mammographic fibroglandular density, bilateral breasts; R92.1 Mammographic calcification found on diagnostic imaging of breast
CPT/HCPCS: 77063; 77067